=== PATIENT | female | born 1940 | race Caucasian/White ===

== ENCOUNTER → 2020-09-24 | Outpatient (CLI) | payer MEDICARE ==
[~2020-09-24] MED LIST: ASPIRIN EC81 MG PO; HCTZ PO; LIPITOR20 MG PO; SERTRALINE HCL25 MG PO
== END ==
LOC: MRI 09:22
PROVIDERS: ATTEND Specialist
DX: S80.01XA Contusion of right knee, initial encounter (principal); S83.411A Sprain of medial collateral ligament of right knee, initial encounter